=== PATIENT | female | born 1940 | race Caucasian/White ===

== ENCOUNTER 2024-09-26 16:52 | Emergency (ER) | payer MEDICARE ==
[2024-09-26 16:56] VITALS: TEMP 96.5
[2024-09-26 17:37] LABS: BASOPHILS # (AUTO) 0.1 X10'3 (0-0.2); BASOPHILS % (AUTO) 1.1 % (0-1); EOSINOPHILS # (AUTO) 0.1 X10'3 (0-0.9); EOSINOPHILS % (AUTO) 0.7 % (0-6); HEMATOCRIT 35.5 % (35.0-45.0); HEMOGLOBIN 11.8 g/dl (12.0-16.0); LYMPHOCYTES # (AUTO) 1.8 X10'3 (1.1-4.8); LYMPHOCYTES % (AUTO) 25.8 % (21-51); MEAN CORPUSCULAR HEMOGLOBIN 28.7 PG (27.0-31.0); MEAN CORPUSCULAR HGB CONC 33.3 g/dL (33.0-36.5); MEAN CORPUSCULAR VOLUME 86.3 FL (78-98); MEAN PLATELET VOLUME 7.5 FL (7.4-10.4); MONOCYTES # (AUTO) 0.6 X10'3 (0-0.9); MONOCYTES % (AUTO) 8.4 % (2-12); NEUTROPHILS # (AUTO) 4.4 X10'3 (1.8-7.7); PLATELET COUNT 289 X10'3 (140-440); RED BLOOD COUNT 4.11 X10'6 (4.20-5.60); RED CELL DISTRIBUTION WIDTH 14.1 % (11.5-14.5); WHITE BLOOD COUNT 6.8 X10'3 (4.5-11.0)
[2024-09-26] MEDS: normal saline 1000ML IV soln IVB ONE (17:39)
[2024-09-26 17:43] LABS: ALANINE AMINOTRANSFERASE 20 U/L (12-78); ALBUMIN 3.4 G/DL (3.4-5.0); ALBUMIN/GLOBULIN RATIO 0.9 (1.1-1.5); ALKALINE PHOSPHATASE 86 IU/L (46-116); ANION GAP 3 (8-16); ASPARTATE AMINO TRANSFERASE 16 U/L (10-37); BILIRUBIN,TOTAL 0.4 MG/DL (0.1-1.0); BLOOD UREA NITROGEN 15 MG/DL (7-18); BUN/CREATININE RATIO 17.2 (10.0-20.0); CALCIUM 8.5 MG/DL (8.5-10.1); CHLORIDE 108 MMOL/L (99-107); CREATININE 0.87 MG/DL (0.40-0.90); GLUCOSE 134 MG/DL (70-104); POTASSIUM 4.3 MMOL/L (3.5-5.1); SODIUM 141 MMOL/L (135-145); eGFR 62 ML/MIN
[2024-09-26 17:50] LABS: PRO BRAIN NATRIURETIC PEPTIDE 333 PG/ML (0-450)
[2024-09-26] MEDS ORDERED: CEPH-585 PO (18:05)
[2024-09-26] MEDS: ceFAZolin/D5W- 1GM premix 50 ML IV STA (18:05)
[2024-09-26 22:28] VITALS: BP 157/77; PULSE 80; RESP 16; O2SAT 97
[2024-09-26 22:33] LABS: BILIRUBIN,URINE NEGATIVE (Neg); CLARITY,URINE CLEAR (Clear); COLOR,URINE YELLOW (Yellow); GLUCOSE, URINE NEGATIVE (Neg); KETONES,URINE TRACE mg/dl (Neg); LEUKOCYTE ESTERASE ,URINE NEGATIVE (Neg); NITRITES, URINE NEGATIVE (Neg); OCCULT BLOOD,URINE NEGATIVE (Neg); PH,URINE 6.5 (4.8-8.0); PROTEIN,URINE NEGATIVE (Neg); UROBILINOGEN,URINE 0.2 E.U/dL (0.2-1.0)
[2024-09-26 22:34] LABS: UA COLLECTION TYPE CLN CATCH MIDSTREAM
== END 2024-09-26 22:52 | disposition home or self-care (01) ==
LOC: ER 16:53
DX: R55 Syncope and collapse (principal); E86.0 Dehydration; F03.90 Unspecified dementia, unspecified severity, without behavioral disturbance, psychotic disturbance, mood disturbance, and anxiety; Z20.822 Contact with and (suspected) exposure to COVID-19
CPT/HCPCS: 36415; 71045; 80053; 81003; 83880; 84484; 85025; 87502; 87503; 87811; 93005; 96365; 99285; J0690; J7030

== ENCOUNTER 2024-10-03 08:08 | Inpatient (IN) | payer MEDICARE ==
[~2024-10-03] VITALS: Ht 160 cm; Wt 45.4 kg
[~2024-10-03 08:08] MED LIST: CEPH-585 PO
[2024-10-03] MEDS ORDERED: normal saline 1000ML IV soln IVB ONE (08:35)
[2024-10-03 09:30] LABS: BASOPHILS % (AUTO) 0.4 % (0-1); EOSINOPHILS % (AUTO) 0.2 % (0-6); HEMATOCRIT 33.8 % (35.0-45.0); HEMOGLOBIN 11.3 g/dl (12.0-16.0); LYMPHOCYTES # (AUTO) 0.9 X10'3 (1.1-4.8); LYMPHOCYTES % (AUTO) 9.9 % (21-51); MEAN CORPUSCULAR HEMOGLOBIN 28.9 PG (27.0-31.0); MEAN CORPUSCULAR HGB CONC 33.4 g/dL (33.0-36.5); MEAN CORPUSCULAR VOLUME 86.7 FL (78-98); MEAN PLATELET VOLUME 7.9 FL (7.4-10.4); MONOCYTES # (AUTO) 0.9 X10'3 (0-0.9); MONOCYTES % (AUTO) 9.3 % (2-12); NEUTROPHILS # (AUTO) 7.4 X10'3 (1.8-7.7); NEUTROPHILS % (AUTO) 80.2 % (42-75); PLATELET COUNT 224 X10'3 (140-440); RED CELL DISTRIBUTION WIDTH 13.7 % (11.5-14.5); WHITE BLOOD COUNT 9.3 X10'3 (4.5-11.0)
[2024-10-03] MEDS: normal saline 1000ml 1,000 ML IV ONE (09:36)
[2024-10-03 09:37] LABS: APTT 32 SECONDS (22-32); INR 1.2 INR
[2024-10-03 09:44] LABS: PROTHROMBIN TIME 12.1 SECONDS (9.0-12.0)
[2024-10-03 09:46] LABS: ALBUMIN 2.9 G/DL (3.4-5.0); ANION GAP 9 (8-16); BLOOD UREA NITROGEN 25 MG/DL (7-18); BUN/CREATININE RATIO 32.9 (10.0-20.0); CALCIUM 8.5 MG/DL (8.5-10.1); CHLORIDE 108 MMOL/L (99-107); CREATININE 0.76 MG/DL (0.40-0.90); GLUCOSE 110 MG/DL (70-104); PRO BRAIN NATRIURETIC PEPTIDE 701 PG/ML (0-450); SODIUM 144 MMOL/L (135-145); TOTAL CARBON DIOXIDE 26.8 MMOL/L (24-32); eCRCL 39 ML/MIN; eGFR 73 ML/MIN
[2024-10-03] MEDS ORDERED: magnesium Cl slow-release 64mg tablet PO PRN (13:00)
[2024-10-03] MEDS ORDERED: potassium Cl 20 mEq SR tablet PO PRN (13:00)
[2024-10-03] MEDS ORDERED: potassium Cl 40MEQ/1/2NS 520ml 520 ML IV PRN (13:00)
[2024-10-03] MEDS ORDERED: ondansetron/PF 4mg/2ml inj IV PRN ×2 (13:00→20:40)
[2024-10-03] MEDS ORDERED: HYDROcodone/acetaminophen 10/325mg tab PO PRN (13:00)
[2024-10-03] MEDS ORDERED: acetaminophen 325mg tablet PO PRN ×2 (13:00)
[2024-10-03] MEDS ORDERED: magnesium hydroxide 30ml (MOM) UD suspension PO PRN (13:00)
[2024-10-03] MEDS ORDERED: HYDROcodone/acetaminophen 5mg/325mg tablet PO PRN (13:00)
[2024-10-03] MEDS ORDERED: magnesium sulf-water 4G/100mL 100 ML IV PRN (13:00)
[2024-10-03] MEDS ORDERED: magnesium sulf-water 2g/50mL 50 ML IV PRN (13:00)
[2024-10-03] MEDS ORDERED: mag hydrox/Alum hydrox/simeth 30ml oral suspension PO PRN (13:00)
[2024-10-03] MEDS: normal saline 1000ml 1,000 ML IV SCH (13:56)
[2024-10-03] MEDS: labetalol 20mg/4ml (5mg/ml) syringe IV ONE (16:11)
[2024-10-03 17:51] VITALS: BP 161/66; PULSE 97; RESP 19; TEMP 98; O2SAT 97
[2024-10-03] MEDS: metoprolol tartrate 25mg tablet PO SCH (19:18)
[2024-10-03] MEDS: docusate sod 100mg capsule PO SCH (19:18)
[2024-10-03] MEDS: heparin, porcine 5000 units/ml vial SQ SCH (19:18)
[2024-10-03] MEDS: K and/or MAG REPLACEMENT MC SCH (19:19)
[2024-10-03 20:00] VITALS: RESP 19; O2SAT 97
[2024-10-03] MEDS ORDERED: morphine 2 MG/ML inj. syringe IV PRN ×2 (20:40)
[2024-10-03] MEDS: sennosides/docusate sodium tablet PO SCH (21:00)
[2024-10-03 22:00] VITALS: BP 129/59; PULSE 97; RESP 16; TEMP 98.3; O2SAT 96
[2024-10-04 06:00] VITALS: BP 152/59; PULSE 25; RESP 15; TEMP 98.1; O2SAT 91
[2024-10-04 06:37] LABS: BASOPHILS # (AUTO) 0.1 X10'3 (0-0.2); BASOPHILS % (AUTO) 1.2 % (0-1); EOSINOPHILS # (AUTO) 0.1 X10'3 (0-0.9); EOSINOPHILS % (AUTO) 1.5 % (0-6); HEMATOCRIT 32.4 % (35.0-45.0); HEMOGLOBIN 10.9 g/dl (12.0-16.0); LYMPHOCYTES # (AUTO) 1.8 X10'3 (1.1-4.8); LYMPHOCYTES % (AUTO) 21.6 % (21-51); MEAN CORPUSCULAR HEMOGLOBIN 29.2 PG (27.0-31.0); MEAN CORPUSCULAR HGB CONC 33.8 g/dL (33.0-36.5); MEAN CORPUSCULAR VOLUME 86.3 FL (78-98); MONOCYTES # (AUTO) 0.9 X10'3 (0-0.9); MONOCYTES % (AUTO) 10.6 % (2-12); NEUTROPHILS # (AUTO) 5.5 X10'3 (1.8-7.7); NEUTROPHILS % (AUTO) 65.1 % (42-75); PLATELET COUNT 234 X10'3 (140-440); RED BLOOD COUNT 3.75 X10'6 (4.20-5.60); RED CELL DISTRIBUTION WIDTH 13.7 % (11.5-14.5); WHITE BLOOD COUNT 8.5 X10'3 (4.5-11.0)
[2024-10-04 07:08] LABS: ALANINE AMINOTRANSFERASE 50 U/L (12-78); ALBUMIN 2.5 G/DL (3.4-5.0); ALBUMIN/GLOBULIN RATIO 0.6 (1.1-1.5); ALKALINE PHOSPHATASE 62 IU/L (46-116); ANION GAP 11 (8-16); ASPARTATE AMINO TRANSFERASE 81 U/L (10-37); BILIRUBIN,TOTAL 0.7 MG/DL (0.1-1.0); BLOOD UREA NITROGEN 24 MG/DL (7-18); BUN/CREATININE RATIO 38.7 (10.0-20.0); CALCIUM 8.3 MG/DL (8.5-10.1); CHLORIDE 108 MMOL/L (99-107); CREATINE KINASE 1508 U/L (26-192); CREATININE 0.62 MG/DL (0.40-0.90); GLUCOSE 99 MG/DL (70-104); MAGNESIUM 1.8 MG/DL (1.5-2.4); POTASSIUM 3.5 MMOL/L (3.5-5.1); SODIUM 142 MMOL/L (135-145); TOTAL PROTEIN 6.6 G/DL (6.4-8.2); eCRCL 48 ML/MIN; eGFR > 90 ML/MIN
[2024-10-04] MEDS ORDERED: amLODIPine 5mg tablet PO SCH (08:00)
[2024-10-04 08:35] VITALS: RESP 18
[2024-10-04] MEDS: losartan 50mg tablet PO SCH (08:35)
[2024-10-04 10:00] VITALS: BP 112/67; PULSE 85; RESP 17; TEMP 98; O2SAT 96
[2024-10-04 18:00] VITALS: BP 117/57; PULSE 107; RESP 18; TEMP 99.2; O2SAT 96
[2024-10-05] MEDS: ringers solution, lacted 1,000 ML IV SCH (00:27)
[2024-10-05 06:03] LABS: BASOPHILS # (AUTO) 0.1 X10'3 (0-0.2); BASOPHILS % (AUTO) 0.7 % (0-1); EOSINOPHILS # (AUTO) 0.1 X10'3 (0-0.9); EOSINOPHILS % (AUTO) 1.1 % (0-6); HEMATOCRIT 31.2 % (35.0-45.0); HEMOGLOBIN 10.5 g/dl (12.0-16.0); LYMPHOCYTES # (AUTO) 1.4 X10'3 (1.1-4.8); LYMPHOCYTES % (AUTO) 15.7 % (21-51); MEAN CORPUSCULAR HEMOGLOBIN 28.9 PG (27.0-31.0); MEAN CORPUSCULAR HGB CONC 33.5 g/dL (33.0-36.5); MEAN CORPUSCULAR VOLUME 86.1 FL (78-98); MEAN PLATELET VOLUME 7.8 FL (7.4-10.4); MONOCYTES # (AUTO) 0.9 X10'3 (0-0.9); MONOCYTES % (AUTO) 10.1 % (2-12); NEUTROPHILS # (AUTO) 6.3 X10'3 (1.8-7.7); NEUTROPHILS % (AUTO) 72.4 % (42-75); PLATELET COUNT 226 X10'3 (140-440); RED BLOOD COUNT 3.63 X10'6 (4.20-5.60); RED CELL DISTRIBUTION WIDTH 13.3 % (11.5-14.5); WHITE BLOOD COUNT 8.7 X10'3 (4.5-11.0)
[2024-10-05 06:24] LABS: GLUCOSE 112 MG/DL (70-104)
[2024-10-05 06:25] LABS: ALANINE AMINOTRANSFERASE 42 U/L (12-78); ALBUMIN 2.4 G/DL (3.4-5.0); ALBUMIN/GLOBULIN RATIO 0.6 (1.1-1.5); ALKALINE PHOSPHATASE 60 IU/L (46-116); ANION GAP 7 (8-16); ASPARTATE AMINO TRANSFERASE 49 U/L (10-37); BILIRUBIN,TOTAL 0.7 MG/DL (0.1-1.0); BLOOD UREA NITROGEN 20 MG/DL (7-18); BUN/CREATININE RATIO 34.5 (10.0-20.0); CALCIUM 8.2 MG/DL (8.5-10.1); CHLORIDE 108 MMOL/L (99-107); CREATINE KINASE 570 U/L (26-192); CREATININE 0.58 MG/DL (0.40-0.90); MAGNESIUM 1.8 MG/DL (1.5-2.4); POTASSIUM 3.4 MMOL/L (3.5-5.1); SODIUM 141 MMOL/L (135-145); TOTAL CARBON DIOXIDE 25.8 MMOL/L (24-32); TOTAL PROTEIN 6.4 G/DL (6.4-8.2); eCRCL 52 ML/MIN; eGFR > 90 ML/MIN
[2024-10-05] MEDS: potassium Cl 20 mEq SR tablet PO PRN (09:02)
[2024-10-05 09:18] VITALS: BP 111/49; PULSE 96; RESP 17; TEMP 97.7; O2SAT 94
[2024-10-05 10:00] VITALS: BP 119/40; PULSE 86; RESP 16; TEMP 98.9; O2SAT 98
[2024-10-05] MEDS ORDERED: POTA-207 PO (12:56)
[2024-10-05] MEDS ORDERED: LOP25T PO (12:56)
[2024-10-05] MEDS: normal saline 1000ml 1,000 ML IV SCH (14:33)
[2024-10-05] MEDS: potassium Cl 20 mEq SR tablet PO STA (14:34)
== END 2024-10-05 16:55 | disposition home health service (06) | DRG 304 ==
LOC: ER 08:08 → ED HOLD 13:02 → ORTHO 4S 17:25
PROVIDERS: ADMIT Nurse Practitioner Family; ATTEND Nurse Practitioner Family
DX: I16.1 Hypertensive emergency (principal); G93.41 Metabolic encephalopathy; M62.82 Rhabdomyolysis; F03.90 Unspecified dementia, unspecified severity, without behavioral disturbance, psychotic disturbance, mood disturbance, and anxiety; R00.0 Tachycardia, unspecified; D64.9 Anemia, unspecified; E04.1 Nontoxic single thyroid nodule; E87.6 Hypokalemia; W06.XXXA Fall from bed, initial encounter; Z66 Do not resuscitate; Y92.003 Bedroom of unspecified non-institutional (private) residence as the place of occurrence of the external cause
CPT/HCPCS: 36415; 70450; 71045; 72125; 72170; 73502; 80048; 80053; 82550; 83605; 83735; 83880; 84484; 85025; 85610; 85730; 87081; 93005; 96361; 96365; 96374; 97161; 97530; 97535; 99285; A6212; A6258; G0378; J1644; J3490; J7030; J7120